=== PATIENT | male | born 1950 | race Caucasian/White ===

== ENCOUNTER 2023-12-27 08:34 | Emergency (ER) | payer MEDICARE, OTHER, SELFPAY ==
[2023-12-27] VITALS (13 sets, daily range): BP systolic 113–182; BP diastolic 79–125; BMI 30.7
--- NOTE | 2023-12-27 08:51 | ED.GENMED ---
History of Present Illness
General
Chief Complaint: Heart Rate Problem
Time Seen by Provider: 12/27/23 08:47
Travel History
Have you had any contact with someone who has COVID-19?: No
Do you have any symptoms of coronavirus? Fever > 100 degrees, chills, cough, shortness of breath, sore throat, loss of taste or smell, muscle aches, or headache?: No
History of Present Illness
History of Present Illness:
HPI: Patient presents after his Apple Watch notified him that his heart rate was in the 130s. He was doing a light workout at that time. The heart rate persisted after he stopped working out. He thinks he may have had some vague lightheadedness
but overall is hardly any symptoms.
EXAM:
GENERAL: Well appearing in no distress
HEENT: Moist oral mucosa
CARDIOVASCULAR: No murmurs, tachycardic heart rate, irregular rhythm, No chest wall tenderness
PULMONARY: No respiratory distress, breath sounds are clear and equal
ABDOMEN: Soft with no peritoneal signs, no tenderness
NEUROLOGIC: Excellent strength all extremities, no coordination deficits
PSYCHIATRIC: Appropriate mental status, normal insight and judgement
EXTREMITIES: Nontender, no edema, moves all extremities equally
SKIN: No rash, no lesions
TIME OF INITIAL ENCOUNTER:
9:45 AM
NUMBER AND COMPLEXITY OF PROBLEMS ADDRESSED AT THE ENCOUNTER
� Chronic conditions affecting care: High blood pressure, hyperlipidemia
� Acute Exacerbation and/or Progression of Chronic Illness: This is an acute problem
� Differential Diagnosis includes: New onset atrial fibrillation, electrolyte abnormality, thyroid disease
AMOUNT AND/OR COMPLEXITY OF DATA TO BE REVIEWED AND ANALYZED
� I performed an independent evaluation of and my interpretation is:
EKG: EKG #1 shows A-fib/flutter with rate of 115, EKG #2 after cardioversion shows sinus rhythm with rate of [address] abnormality
CT:
X-rays:
Laboratory Studies: CBC, chemistries including troponin and TSH are all normal
Other:
� Review of other/old records: No old records available for review
� Clinical information was obtained by an independent historian: I also spoke to who indicates the patient was supposed to start valsartan next week
� Prescriptions/Medications Considered but not given:
� Further testing considered but not performed:
RISK OF COMPLICATIONS AND/OR MORBIDITY OR MORTALITY OF PATIENT MANAGEMENT
� Social determinants of health affecting care: Lives at home
� Discussion with other providers: I discussed case with Dr. Rios who recommends cardioversion. After cardioversion he also recommends Toprol in addition to the Eliquis.
� Escalation of care including admission/observation vs risk of discharge considered: The patient is found to be in new onset A-fib/flutter likely starting today since his Apple Watch only alerted him today that if his rates were
in the 130s. As he wore his watch yesterday he has no alerts and heart rate was normal yesterday. The patient tolerated the procedure well. He has follow-up with Dr. Hamilton next week. He does have a Mohs procedure scheduled for tomorrow but
Blanca recommends that he starts Eliquis now.
Phy Exam
Physical Exam
Physical Exam:
See HPI
Course
Orders/Labs/Results
Orders:
Orders
12/27/23
Electrocardiogram (*1) Stat
Reason for Study: Chest Pain
Comment: DONE
12/27/23 09:13
Complete Blood Count/With Diff Urgent
TSH Reflex To Free T4 Urgent
12/27/23 09:15
Propofol [Diprivan] 20 ml .ROUTE .STK-MED
12/27/23 09:48
Basic Metabolic Panel Urgent
Magnesium Urgent
Troponin I Urgent
12/27/23 10:53
Electrocardiogram (*1) Urgent
Reason for Study: Other
Other Reason for Exam: post cardioversion
EKG- Treatment ONCE
Abnormal Lab Results
12/27/23 12/27/23
09:13 09:48
MPV 10.9 H fL
(7.4-10.4)
Absolute Monos (auto) 0.9 H 10^3/uL
(0.1-0.6)
Monocytes % 13.0 H %
(1.7-9.3)
Chloride 110 H mmol/L
(98-107)
BUN 23 H mg/dl
(9-20)
Glucose 100 H mg/dl
(70-99)
12/27/23 09:13
12/27/23 09:48
Vital Signs
Initial and Last Documented VS:
Initial Vital Signs
Temp Pulse Resp BP Pulse Ox
97.8 F 136 20 173/125 99
12/27/23 08:36 12/27/23 08:36 12/27/23 08:36 12/27/23 08:36 12/27/23 08:36
Last Documented Vital Signs
Temp Pulse Resp BP Pulse Ox
98.3 F 61 16 134/84 98
12/27/23 11:15 12/27/23 11:30 12/27/23 11:30 12/27/23 11:15 12/27/23 11:30
Procedures
Cardioversion
Indication:: Afib
Performed by:: Dr. Martínez Abdalla
Synchronized?: Yes
Energy Used: 200 joules
Number of attempts: 1
Successful?: Yes
Complications: None
ASA Risk Score: Class II
Any reaction or bad outcome to prior sedation/anesthesia?: No history of a reaction
Sedation level to be attained: moderate
Chart and allergies reviewed: Yes
Patient reassessed prior to sedation: Yes
Time out completed at (validating right patient & procedure): 10:45
History of difficult intubation: No
Airway free of obstruction: Yes
Patient has a gag reflex: Yes
Patient is able to open mouth: Yes
Patient has no dentures: Yes
Patient has no loose teeth: Yes
Medication administered by Provider during Moderate Sedation: IV Propofol (mg)
Total dose administered: 70
Time drug administered: 10:45
Start Time: 10:45
Stop Time: 10:58
*Critical Care Note
Total Time (30-74mins, 75-104mins- exclusive of procedures): Not Applicable
ED Attending Note
-
Portions of this chart may have been created with voice recognition software.� Occasional wrong word or��sound alike� substitutions may have occurred due to the inherent limitations of voice recognition software.
Discharge Plan
Departure
Patient Disposition: Home (Routine Discharge)
Date of Disposition: 12/27/23
Time of Disposition: 11:07
Patient with high blood pressure during this ER visit?: Yes
Discharge Problem:
Atrial fibrillation with rapid ventricular response
Instructions: Atrial Fibrillation (DC), BLOOD PRESSURE
Prescriptions:
New
Eliquis 5 mg tablet
5 mg PO BID Qty: 60 0RF
metoprolol succinate [Toprol XL] 25 mg tablet extended release 24 hr
25 mg PO DAILY Qty: 30 0RF
No Action
Theragen Tablet
1 tab PO .LUNCHTIME
aspirin 81 mg Tablet,Delayed Release (Dr/Ec)
81 mg PO DAILY
magnesium oxide 500 mg magnesium Tablet
500 mg PO QPM
mupirocin 2 % Ointment
1 applic TOPICAL DAILY@2100
rosuvastatin 10 mg Tablet
10 mg PO QPM
Simply Saline 0.9 % Aerosol,[place]
1 spray INTRANASAL DAILYPRN PRN (Reason: congestion)
Uorvbcefqbc-Fqqyzjucsfy-GKG [id number] mg Tablet
1 tab PO DAILY
CoQ-10
1 cap PO DAILY
Curcumin
1 cap PO .LUNCHTIME
Juice Plus
3 cap PO NOON
cholecalciferol (vitamin D3)
1 tab PO DAILY
Referrals:
Steve Tellez MD [Family Provider] -
Catracho Burciaga MD [Active] - Follow up in 1 week
Activity Restrictions/Additional Instructions:
I spoke to Dr. Rios today. We did perform electrical cardioversion today. Dr. Rios also recommends in addition to Eliquis, to start a low-dose beta-armani�I prescribed Toprol 25 mg daily. This helps to control the heart rate and also may
lower the blood pressure therefore I would recommend to hold off on valsartan for the time being. Follow-up with your hebrew teacher. Return here if worse.
Interventions
Interventions:
*Risk Screen - Suicide Last Done: 12/27/23 08:36
*General Assessment Last Done: 12/27/23 08:36
*Neglect/Abuse Screening Last Done: 12/27/23 08:36
ED- Fall Risk Assessment Last Done: 12/27/23 09:10
*ED COVID-19 Vaccine History Last Done: 12/27/23 09:10
ED- Cardiac Assessment Last Done: 12/27/23 09:10
ED- Pulmonary Assessment Last Done: 12/27/23 09:10
Discharge Date and Time
Print Language: FRISIAN
[2023-12-27 09:32] LABS: % Basophils 0.6 % (0-2); % Eosinophils 0.9 % (0-6); % Immature Granulocytes 0.1 % (0-0.5); % Neutrophils 59.4 % (42.2-75.2); Absolute Eosinophils 0.1 10^3/uL (0-0.7); Absolute Lymphocytes 1.7 10^3/uL (1.2-3.4); Absolute Monocytes 0.9 10^3/uL (0.1-0.6); Hematocrit 43.5 % (39.0-52.0); Hemoglobin 15.5 g/dL (13.0-18.0); Mean Corp Hgb Conc. 35.6 g/dL (33.0-37.0); Mean Corpuscular Hgb 30.2 pg (27.0-31.0); Mean Corpuscular Volume 84.6 fL (80.0-94.0); Mean Platelet Volume 10.9 fL (7.4-10.4); Nucleated Red Blood Cells % 0 % (-); Platelet Count 232 10^3/uL (130-400); Red Blood Cell Count 5.14 10^6/uL (4.70-6.10); Red Cell Dist. Width 12.6 % (11.5-14.5); White Blood Cell Count 6.7 10^3/uL (4.8-10.8)
[2023-12-27 10:12] LABS: TSH Reflex To Free T4 1.97 uIU/ml (0.47-4.68)
[2023-12-27 10:16] LABS: Blood Urea Nitrogen 23 mg/dl (9-20); Calcium 8.7 mg/dl (8.4-10.2); Carbon Dioxide 26 mmol/L (22-30); Chloride 110 mmol/L (98-107); Estimated Creatinine Clearance 94 ml/min; Glucose 100 mg/dl (70-99); Potassium 3.7 mmol/L (3.5-5.1); Sodium 139 mmol/L (135-145); eGFR > 60.00
[2023-12-27 10:26] LABS: Troponin I 0.014 ng/ml
== END 2023-12-27 11:58 | disposition home or self-care (01) ==
LOC: EMR 08:34
PROVIDERS: EMERGENCY PHYSICIAN Emergency Medicine; FAMILY PHYSICIAN Internal Medicine
DX: I48.91 Unspecified atrial fibrillation (principal); I10 Essential (primary) hypertension; E78.00 Pure hypercholesterolemia, unspecified
CPT/HCPCS: 92960; 99285; 99152; 80048; 83735; 84443; 84484; 85025; 93005

== ENCOUNTER → 2024-01-23 | Outpatient (REF) | payer MEDICARE, OTHER, SELFPAY | LOC: DHSLP | PROVIDERS: ATTENDING PHYSICIAN Internal Medicine Cardiovascular Disease; FAMILY PHYSICIAN Internal Medicine | DX: G47.33 Obstructive sleep apnea (adult) (pediatric) (principal) | CPT/HCPCS: 95800 ==

== ENCOUNTER → 2024-02-22 08:04 | Outpatient (REF) | payer MEDICARE, OTHER, SELFPAY | LOC: RCS 08:04 | PROVIDERS: ATTENDING PHYSICIAN Internal Medicine Cardiovascular Disease; FAMILY PHYSICIAN Internal Medicine | DX: I48.19 Other persistent atrial fibrillation (principal) | CPT/HCPCS: 93306 ==